=== PATIENT | male | born 1960 | race African-American/Black ===

== ENCOUNTER 2019-05-03 17:22 | Inpatient (IN) | payer OTHER ==
[2019-05-03 18:04] VITALS: BMI 28.1
--- NOTE | 2019-05-03 19:18 | HP ---
CIWA Score Nausea/Vomitin-No Nausea/No Vomiting Muscle Tremors: None Anxiety: 0-No Anxiety, at Ease Agitation: 0-Normal Activity Paroxysmal Sweats: 1-Minimal Palms Moist Orientation: 0-Oriented Tacttile Disturbances: 0-None Auditory Disturbances: 0-None Visual Disturbances: 0-None Headache: 0-None Present CIWA-Ar Total Score: 1 - Admission Criteria OASAS Guidelines: Admission for Medically Managed Detox: Requires at least one of the followin. CIWA greater than 12 2. Seizures within the past 24 hours 3. Delirium tremens within the past 24 hours 4. Hallucinations within the past 24 hours 5. Acute intervention needed for co occurring medical disorder 6. Acute intervention needed for co occurring psychiatric disorder 7. Severe withdrawal that cannot be handled at a lower level of care (continued vomiting, continued diarrhea, abnormal vital signs) requiring intravenous medication and/or fluids 8. Admission ROS [facility] Chief Complaint: rehab from alcohol use- completed detox 2 weeks ago Allergies/Adverse Reactions: Allergies Allergy/AdvReac Type Severity Reaction Status Date / Time No Known Allergies Allergy Verified 05/03/19 17:57 History of Present Illness: 59 yo with no medical problems on no meds, here for eval and treatment of alcohol use disorder. Starts to drink early at friends house and drinks all day. Says he was in detox a couple of weeks ago to [facility] and was given librium, left 2 weeks ago and has cut down on drinking and feels like he needs rehab.and not detox alcohol- drinks 1 1/2 pints/day of vodka- no h/o seizures, DT's cocaine-occ Utox- shawn, BZO, MARIANNE- 0.62 DUR- shows no recent meds - Ebola screening Have you traveled outside of the country in the last 21 days: No (N) Have you had contact with anyone from an Ebola affected area: No Do you have a fever: No Patient History - Patient Medical History Hx Anemia: Yes (no med) Hx Asthma: No Hx Chronic Obstructive Pulmonary Disease (COPD): No Hx Cancer: No Hx Cardiac Disorders: No Hx Congestive Heart Failure: No Hx Hypertension: No Hx Hypercholesterolemia: No Hx Pacemaker: No HX Cerebrovascular Accident: No Hx Seizures: No Hx Dementia: No Hx Diabetes: No Hx Gastrointestinal Disorders: No Hx Liver Disease: No Hx Genitourinary Disorders: No Hx Sexually Transmitted Disorders: No Hx Renal Disease (ESRD): No Hx Thyroid Disease: No Hx Human Immunodeficiency Virus (HIV): No (2011) Hx Hepatitis C: No Hx Depression: No Hx Suicide Attempt: No Hx Bipolar Disorder: No Hx Schizophrenia: No - Patient Surgical History Past Surgical History: Yes Hx Neurologic Surgery: No Hx Cataract Extraction: No Hx Cardiac Surgery: No Hx Lung Surgery: No Hx Breast Surgery: No Hx Breast Biopsy: No Hx Abdominal Surgery: No Hx Appendectomy: No Hx Cholecystectomy: No Hx Genitourinary Surgery: No Hx Section: No Hx Orthopedic Surgery: No Other Surgical History: SURGERY FOR HEMORROIDS - SEVERAL YRS. AGO Anesthesia Reaction: No - PPD History Date: 09/09/13 - Smoking Cessation Smoking history: Current every day smoker Have you smoked in the past 12 months: Yes Aproximately how many cigarettes per day: 1 Hx Chewing Tobacco Use: No Initiated information on smoking cessation: Yes 'Breaking Loose' booklet given: 05/03/19 - Substance & Tx. History Hx Alcohol Use: Yes Hx Substance Use: Yes Substance Use Type: Alcohol Hx Substance Use Treatment: Yes - Substances abused Alcohol Substance route: Oral Frequency: Daily Amount used: 1 1/2 PINT OF VODKA Age of first use: 13 Date of last use: 05/03/19 Cocaine Substance route: Smoking Frequency: 3-6 times per week Amount used: $200 Age of first use: 49 Date of last use: 05/02/19 Family Disease History - Family Disease History Family Disease History: Other: Father (alcohol,) Admission Physical Exam S - Vital Signs Vital Signs: Vital Signs - 24 hr 05/03/19 18:00 Temperature 97.3 F L Pulse Rate 85 Respiratory 19 Rate Blood Pressure 143/81 - Physical General Appearance: Yes: Within Normal Limits HEENTM: Yes: Within Normal Limits Respiratory: Yes: Within Normal Limits Neck: Yes: Within Normal Limits Cardiology: Yes: Within Normal Limits Abdominal: Yes: Within Normal Limits Genitourinary: Yes: Within Normal Limits Back: Yes: Within Normal Limits Musculoskeletal: Yes: Within Normal Limits Extremities: Yes: Within Normal Limits Neurological: Yes: Within Normal Limits Integumentary: Yes: Within Normal Limits Lymphatic: Yes: Within Normal Limits Breathalyzer - Breathalyzer Breathalyzer: 0.062 Urine Drug Screen - Test Device Lot number: [id number] Expiration date: 12/29/20 - Control Is test valid?: Yes - Results Drug screen NEGATIVE: No Urine drug screen results: SHAWN-Cocaine, BZO-Benzodiazepines Inpatient Rehab Admission - Rehab Decision to Admit Inpatient rehab admission?: Yes - Initial Determination Are CD services needed?: Yes Free of communicable disease: Yes Not in need of hospitalization: Yes - Rehab Admission Criteria Previous failed treatment: Yes Poor recovery environment: Yes Comorbidities: Yes Lacks judgement: Yes Patient is meeting Inpatient Rehab admission criteria:: Yes (completed detox, here for rehab services for alcohol)
[2019-05-03] MEDS ORDERED: MAGNESIUM HYDROX 2400MG/30ML ORAL SUSPENSION 30 ML CUP PO PRN (19:23)
[2019-05-03] MEDS ORDERED: P-EPHED 60MG/TRIPROLIDI 2.5MG TABLET PO PRN (19:23)
[2019-05-03] MEDS ORDERED: NICOTINE POLACRILEX 2 MG GUM BC PRN (19:23)
[2019-05-03] MEDS ORDERED: ACETAMINOPHEN 325 MG TABLET (FP) PO PRN (19:23)
[2019-05-03] MEDS ORDERED: IBUPROFEN 400 MG TABLET (FP) PO PRN (19:23)
[2019-05-03] MEDS ORDERED: MAGNESIUM CITRATE 300 ML BOTTLE PO PRN (19:23)
[2019-05-03] MEDS ORDERED: LOPERAMIDE HCL 2 MG CAPSULE PO PRN (19:23)
[2019-05-03] MEDS ORDERED: MAG HYDROX/AL HYDROX/SIMETH 30 ML UNIT-DOSE CUP PO PRN (19:23)
[2019-05-03] MEDS ORDERED: guaiFENesin 200 MG/10 ML 10 ML UNIT-DOSE CUPS PO PRN (19:23)
[2019-05-03] MEDS ORDERED: MENTHOL/PHENOL 1 EACH UD MM PRN (19:23)
[2019-05-03] MEDS ORDERED: hydrOXYzine PAMOATE 25 MG CAPSULE (FP) PO PRN (19:23)
[2019-05-03] MEDS ORDERED: MELATONIN 5 MG TABLETS PO PRN (22:00)
[2019-05-03] MEDS ORDERED: THIAMINE HCL 100 MG TABLET (FP) PO SCH (22:00)
--- NOTE | 2019-05-04 09:29 | PN ---
[facility] CIWA - CIWA Score Nausea/Vomitin-Mild Nausea/No Vomiting Muscle Tremors: 2 Anxiety: 1-Mildly Anxious Agitation: 0-Normal Activity Paroxysmal Sweats: No Perspiration Orientation: 0-Oriented Tacttile Disturbances: 0-None Auditory Disturbances: 0-None Visual Disturbances: 0-None Headache: 3-Moderate CIWA-Ar Total Score: 7 [facility] Progress Note (SOAP) Subjective: PT ADMITTED YESTERDAY AND NOW C/O WITHDRAWAL SX OF NAUSEA, SWEATING, ANXIETY AND SHAKES STATING "I NEED DETOX OR ELSE I WILL SIGN OUT". PT STATED HE HAD A LOT OF ALCOHOL IN HIS SYSTEM AND MINIMIZED HIS SYMPTOMS. PT REPORTS HE WAS DOING WELL UNTILL HE RELAPSED 2-3 MONTHS AGO AND USING MORE IN THE LAST 3 WEEKS. REPORTS HE WENT TO DETOX 2 WEEKS AGO AT [facility] AND RECENTLY CONTINUED TO DRINK. PT STATED THAT HE NEEDS HELP AND WILL LIKE TO CONTINUE TREATMENT IN REHAB AFTER DETOX. NO HX SEIZURES,DTs, HALLUCINATIONS OR S/H/ IDEATIONS. REPORTS HX BLACKOUTS DUE TO DRINKING. PMHX:PT DENIES PSCH Hx:PT REPORTS HX PAST PSYCH VISIT X2 BUT REFUSED MEDICATION. Objective: 05/04/19 11:23 Vital Signs - 24 hr 05/03/19 05/03/19 05/04/19 18:00 20:35 00:30 Temperature 97.3 F L 97.5 F L Pulse Rate 85 81 Respiratory 19 18 18 Rate Blood Pressure 143/81 109/85 05/04/19 05/04/19 03:30 06:45 Temperature Pulse Rate Respiratory 18 18 Rate Blood Pressure LABS RESULTS PENDING CIWA SCORE 7 WAS (1) YESTERDAY. Assessment: 05/04/19 11:25 ALCOHOL USE DISORDER WITHDRAWAL SX Plan: CONSULTED WITH DR. GERONIMO ON PT'S STATUS. 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 GERONIMO SEE A CLINICAL NEED TO TRANSFER PT TO DETOX FROM REHAB BASED ON SX AND CIWA SCORE.
[2019-05-04 09:38] LABS: EPI CELLS 1.9 /HPF (0-5/HPF); HYALINE CASTS 12 /lpf (0-8); URINE APPEARANCE TURBID; URINE BACTERIA 40.5 /hpf (NEGATIVE); URINE BILIRUBIN NEGATIVE (NEGATIVE); URINE COLOR DK YELLOW; URINE GLUCOSE (UA) NEGATIVE (NEGATIVE); URINE KETONE TRACE (NEGATIVE); URINE LEUK ESTERASE NEGATIVE (NEGATIVE); URINE NITRITE NEGATIVE (NEGATIVE); URINE PROTEIN 1+ (NEGATIVE); URINE RBC 2 /hpf (0-4)
[2019-05-04] MEDS ORDERED: PRENATAL VITAMINS W/ FOLIC ACID TABLET (FP) PO SCH (10:00)
[2019-05-04 11:39] VITALS: BP 129/69; PULSE 73; TEMP 98.5
[2019-05-04 13:00] LABS: HEMATOCRIT 42.4 % (35.4-49); HEMOGLOBIN 13.2 GM/dL (11.7-16.9); MCH 22.6 pg (25.7-33.7); MEAN PLT VOLUME 9.2 fl (7.5-11.1); RBC 5.81 M/mm3 (4.00-5.60); RDW 16.4 % (11.9-15.9); WHITE BLOOD COUNT 7.9 K/mm3 (4.0-10.0)
[2019-05-04 13:17] LABS: ALBUMIN 3.6 g/dl (3.4-5.0); BLOOD UREA NITROGEN 13.8 mg/dL (7-18); CALCIUM 9.1 mg/dL (8.5-10.1); CREATININE 1.1 mg/dL (0.55-1.3); POTASSIUM 3.8 mmol/L (3.5-5.1); TOT PROT 8.1 g/dl (6.4-8.2)
[2019-05-04 13:29] LABS: PLATELET COUNT 165 K/MM3 (134-434)
--- NOTE | 2019-05-04 14:50 | PN ---
[facility] Progress Note Note: this 59 years old male with alcohol and cocaine dependence,was admitted in rehab on 05/03/19, developed severe withdrawal signs and symptom,evaluated by CHIEF RISK OFFICER Iesha Garcia and concurred by DR.A Moe for the need of inpatient detox,Medical manage,Librium regimen patient has history of heavy and long standing of alcoholic consumption,1 to 2 pints of vodka/day,stared at age of 13, last drink 05/03/19,also cocaine dependence 200$/use,3 to 6 times/week,last use 05/02/19 denied seizure but have history of black out before I agreed and concurred that this patient need inpatient detox from alcohol and cocaine dependence, medically manage and Librium regimen
--- NOTE | 2019-05-04 14:55 | PN ---
S CIWA - CIWA Score Nausea/Vomitin Muscle Tremors: 3 Anxiety: 3 Agitation: 3 Paroxysmal Sweats: 1-Minimal Palms Moist Orientation: 0-Oriented Tacttile Disturbances: 1-Very Mild Itch/Numbness Auditory Disturbances: 1-Very Mild Visual Disturbances: 0-None Headache: 2-Mild CIWA-Ar Total Score: 17 [facility] Progress Note (SOAP) Subjective: alert,oriented x 3,tremor,nausea,vomiting sweating,insomnia,diarrhea, Objective: 05/04/19 14:52 Laboratory Last Values WBC 7.9 K/mm3 (4.0-10.0) 05/04/19 10:00 RBC 5.81 M/mm3 (4.00-5.60) H 05/04/19 10:00 Hgb 13.2 GM/dL (11.7-16.9) 05/04/19 10:00 Hct 42.4 % (35.4-49) 05/04/19 10:00 MCV 73.0 fl (80-96) L 05/04/19 10:00 MCH 22.6 pg (25.7-33.7) L 05/04/19 10:00 MCHC 31.0 g/dl (32.0-35.9) L 05/04/19 10:00 RDW 16.4 % (11.9-15.9) H 05/04/19 10:00 Plt Count 165 K/MM3 (134-434) D 05/04/19 10:00 MPV 9.2 fl (7.5-11.1) 05/04/19 10:00 Sodium 142 mmol/L (136-145) 05/04/19 10:00 Potassium 3.8 mmol/L (3.5-5.1) 05/04/19 10:00 Chloride 107 mmol/L (98-107) 05/04/19 10:00 Carbon Dioxide 30 mmol/L (21-32) 05/04/19 10:00 Anion Gap 5 MMOL/L (8-16) L 05/04/19 10:00 BUN 13.8 mg/dL (7-18) 05/04/19 10:00 Creatinine 1.1 mg/dL (0.55-1.3) 05/04/19 10:00 Est GFR (CKD-EPI)AfAm 84.71 05/04/19 10:00 Est GFR (CKD-EPI)NonAf 73.09 05/04/19 10:00 Random Glucose 103 mg/dL (74-106) 05/04/19 10:00 Calcium 9.1 mg/dL (8.5-10.1) 05/04/19 10:00 Total Bilirubin 1.0 mg/dL (0.2-1) 05/04/19 10:00 AST 24 U/L (15-37) 05/04/19 10:00 ALT 27 U/L (13-61) 05/04/19 10:00 Alkaline Phosphatase 112 U/L (45-117) 05/04/19 10:00 Total Protein 8.1 g/dl (6.4-8.2) 05/04/19 10:00 Albumin 3.6 g/dl (3.4-5.0) 05/04/19 10:00 Urine Color Dk yellow 05/03/19 09:23 Urine Appearance Turbid 05/03/19 09:23 Urine pH 5.0 (5.0-8.0) D 05/03/19 09:23 Ur Specific Mcgrath 1.037 (1.010-1.035) H 05/03/19 09:23 Urine Protein 1+ (NEGATIVE) H 05/03/19 09:23 Urine Glucose (UA) Negative (NEGATIVE) 05/03/19 09:23 Urine Ketones Trace (NEGATIVE) H 05/03/19 09:23 Urine Blood Negative (NEGATIVE) 05/03/19 09:23 Urine Nitrite Negative (NEGATIVE) 05/03/19 09:23 Urine Bilirubin Negative (NEGATIVE) 05/03/19 09:23 Urine Urobilinogen 1.0 mg/dL (0.2-1.0) 05/03/19 09:23 Ur Leukocyte Esterase Negative (NEGATIVE) 05/03/19 09:23 Urine RBC (Auto) 2 /hpf (0-4) 05/03/19 09:23 Urine Casts (Auto) 12 /lpf (0-8) 05/03/19 09:23 U Epithel Cells (Auto) 1.9 /HPF (0-5/HPF) 05/03/19 09:23 Urine Crystals (Auto) /hpf 05/03/19 09:23 Urine Bacteria (Auto) 40.5 /hpf (NEGATIVE) 05/03/19 09:23 RPR Titer Nonreactive (NONREACTIVE) 05/04/19 10:00 05/04/19 14:54 Vital Signs Temperature 98.5 F 05/04/19 11:37 Pulse Rate 73 05/04/19 11:37 Respiratory Rate 20 05/04/19 11:37 Blood Pressure 129/69 05/04/19 11:37 O2 Sat by Pulse Oximetry (%) Assessment: 05/04/19 14:55 withdrawal signs and symptom Plan: for inpatient detox,medically manage,librium regimen close monitoring
== END 2019-05-04 11:20 | disposition home or self-care (01) | DRG 772 ==
LOC: YASAS 17:22 → Y5N 19:41
PROVIDERS: ADMIT Neuromusculoskeletal Medicine & OMM; ATTEND Neuromusculoskeletal Medicine & OMM
PROC: HZ42ZZZ Group Counseling for Substance Abuse Treatment, Cognitive-Behavioral (ICD-10-PCS; principal; 2019-05-03)
DX: F10.20 Alcohol dependence, uncomplicated (principal); F14.20 Cocaine dependence, uncomplicated; D64.9 Anemia, unspecified
CPT/HCPCS: 36415; 80053; 81003; 85027; 86480; 86593

== ENCOUNTER 2019-05-04 11:26 | Inpatient (IN) | payer OTHER ==
[2019-05-04] MEDS ORDERED: diazePAM 5 MG TABLET PO PRN (12:09)
[2019-05-04] MEDS ORDERED: MAGNESIUM HYDROX 2400MG/30ML ORAL SUSPENSION 30 ML CUP PO PRN (12:09)
[2019-05-04] MEDS ORDERED: MELATONIN 5 MG TABLETS PO PRN (12:09)
[2019-05-04] MEDS ORDERED: MAGNESIUM CITRATE 300 ML BOTTLE PO PRN (12:09)
[2019-05-04] MEDS ORDERED: ONDANSETRON *ODT* 4 MG TABLET SL PRN (12:09)
[2019-05-04] MEDS ORDERED: MAG HYDROX/AL HYDROX/SIMETH 30 ML UNIT-DOSE CUP PO PRN (12:09)
[2019-05-04] MEDS ORDERED: hydrOXYzine PAMOATE 25 MG CAPSULE (FP) PO PRN (12:09)
[2019-05-04] MEDS ORDERED: ACETAMINOPHEN 325 MG TABLET (FP) PO PRN ×2 (12:09)
[2019-05-04] MEDS ORDERED: BISMUTH SUBSALICYLATE 524 MG/30 ML UD PO PRN (12:09)
[2019-05-04] MEDS ORDERED: MENTHOL/PHENOL 1 EACH UD MM PRN (12:09)
[2019-05-04] MEDS ORDERED: IBUPROFEN 400 MG TABLET (FP) PO PRN (12:09)
[2019-05-04] MEDS ORDERED: METHOCARBAMOL 500 MG TABLET PO PRN (12:09)
[2019-05-04] MEDS ORDERED: NICOTINE POLACRILEX 2 MG GUM BUC PRN (12:09)
[2019-05-04] MEDS ORDERED: NICOTINE 14 MG/24 HOURS TOPICAL PATCH TD SCH (12:15)
[2019-05-04] MEDS ORDERED: diazePAM 5 MG TABLET PO SCH (14:00)
--- NOTE | 2019-05-04 15:21 | HP ---
CIWA Score Nausea/Vomitin Muscle Tremors: 3 Anxiety: 3 Agitation: 3 Paroxysmal Sweats: 1-Minimal Palms Moist Orientation: 0-Oriented Tacttile Disturbances: 1-Very Mild Itch/Numbness Auditory Disturbances: 1-Very Mild Visual Disturbances: 0-None Headache: 2-Mild CIWA-Ar Total Score: 17 - Admission Criteria OASAS Guidelines: Admission for Medically Managed Detox: Requires at least one of the followin. CIWA greater than 12 2. Seizures within the past 24 hours 3. Delirium tremens within the past 24 hours 4. Hallucinations within the past 24 hours 5. Acute intervention needed for co occurring medical disorder 6. Acute intervention needed for co occurring psychiatric disorder 7. Severe withdrawal that cannot be handled at a lower level of care (continued vomiting, continued diarrhea, abnormal vital signs) requiring intravenous medication and/or fluids 8. Admission ROS [facility] Chief Complaint: patient was admitted to rehab [address] [place] [address] on 05/03/19 ,developed withdrawal signs and symptom today need inpatient detox Allergies/Adverse Reactions: Allergies Allergy/AdvReac Type Severity Reaction Status Date / Time No Known Allergies Allergy Verified 05/03/19 17:57 History of Present Illness: this 59 years old male with extensive history of heavy and long standing of alcohol dependence since the age of [age] years old, drinking more heavy lately,consume vodka 1 to 2 pints of vodka/day,last drink ,also using cocaine inhale 200$/use, 3 to 6 times per week,last use 05/02/19 history of black out denied seizure multiple admissions in detox and rehabs,last in [facility] 2 weeks ago but keep relapsing nicotine dependence 10 cigarette/day would like to have nicotine patch 21 mgs and nicotine gum weight loss history of anxiety,depression,insomnia,no med developed withdrawal sings and symptom in rehab,need inpatient detox Exam Limitations: No Limitations - Ebola screening Have you traveled outside of the country in the last 21 days: No (N) Have you had contact with anyone from an Ebola affected area: No Do you have a fever: No - Review of Systems Constitutional: Chills, Loss of Appetite, Malaise, Night Sweats, Changes in sleep, Unintentional Wgt. Loss EENT: reports: Nose Congestion Respiratory: reports: No Symptoms reported Cardiac: reports: No Symptoms Reported GI: reports: Diarrhea, Nausea, Poor Appetite, Vomiting, Abdominal cramping : reports: No Symptoms Reported Musculoskeletal: reports: Back Pain, Muscle Pain Integumentary: reports: Dryness Neuro: reports: Headache, Tremors Endocrine: reports: No Symptoms Reported Hematology: reports: No Symptoms Reported Psychiatric: reports: No Sypmtoms Reported, Judgement Intact, Mood/Affect Appropiate, Orientated x3, Anxious, Depressed Other Systems: Reviewed and Negative Patient History - Patient Medical History Hx Anemia: Yes (no med) Hx Asthma: No Hx Chronic Obstructive Pulmonary Disease (COPD): No Hx Cancer: No Hx Cardiac Disorders: No Hx Congestive Heart Failure: No Hx Hypertension: No Hx Hypercholesterolemia: No Hx Pacemaker: No HX Cerebrovascular Accident: No Hx Seizures: No Hx Dementia: No Hx Diabetes: No Hx Gastrointestinal Disorders: No Hx Liver Disease: No Hx Genitourinary Disorders: No Hx Sexually Transmitted Disorders: No Hx Renal Disease (ESRD): No Hx Thyroid Disease: No Hx Human Immunodeficiency Virus (HIV): No (last 11/19 negative) Hx Hepatitis C: No Hx Depression: No Hx Suicide Attempt: No (thought of hurting himself to jump from bridge at age of 52,change his mind) Hx Bipolar Disorder: No Hx Schizophrenia: No Other Medical History: no suicidal,no homicidal - Patient Surgical History Past Surgical History: Yes Hx Neurologic Surgery: No Hx Cataract Extraction: No Hx Cardiac Surgery: No Hx Lung Surgery: No Hx Breast Surgery: No Hx Breast Biopsy: No Hx Abdominal Surgery: No Hx Appendectomy: No Hx Cholecystectomy: No Hx Genitourinary Surgery: No Hx Section: No Hx Orthopedic Surgery: No Other Surgical History: SURGERY FOR HEMORROIDS - SEVERAL YRS. AGO Anesthesia Reaction: No - PPD History Previous Implant?: Yes Documented Results: Negative w/o proof Date: 09/09/13 PPD to be Administered?: No - Smoking Cessation Smoking history: Current every day smoker Have you smoked in the past 12 months: Yes Aproximately how many cigarettes per day: 10 Hx Chewing Tobacco Use: No Initiated information on smoking cessation: Yes 'Breaking Loose' booklet given: 05/04/19 - Substance & Tx. History Hx Alcohol Use: Yes Hx Substance Use: Yes Substance Use Type: Alcohol, Cocaine Hx Substance Use Treatment: Yes ([facility] 2 weeks ago) - Substances abused Alcohol Substance route: Oral Frequency: Daily Amount used: 1 1/2 PINT OF VODKA Age of first use: 13 Date of last use: 05/03/19 Cocaine Substance route: Smoking Frequency: 3-6 times per week Amount used: $200 Age of first use: 49 Date of last use: 05/02/19 Family Disease History - Family Disease History Family Disease History: Other: Father (alcohol,) Admission Physical Exam [facility] - Vital Signs Vital Signs: Vital Signs - 24 hr 05/04/19 14:04 Temperature 98.6 F Pulse Rate 82 Respiratory 18 Rate Blood Pressure 141/93 - Physical General Appearance: Yes: Moderate Distress, Tremorous, Irritable, Sweating, Anxious HEENTM: Yes: Normal ENT Inspection, CASSIE, Nasal Congestion Respiratory: Yes: Within Normal Limits Neck: Yes: Within Normal Limits, Supple, Trachea in good position Breast: Yes: Within Normal Limits Cardiology: Yes: Within Normal Limits, Regular Rhythm, Regular Rate, S1, S2 Abdominal: Yes: Within Normal Limits, Normal Bowel Sounds, Non Tender, Flat, Soft Genitourinary: Yes: Within Normal Limits Back: Yes: Muscle Spasm Musculoskeletal: Yes: Back pain, Muscle Pain Extremities: Yes: Tremors Neurological: Yes: soil analyst II-XII NML intact, Fully Oriented, Alert, Motor Strength 5/5 Integumentary: Yes: Dry Lymphatic: Yes: Within Normal Limits - Diagnostic (1) Alcohol dependence with uncomplicated withdrawal Current Visit: Yes Status: Acute (2) Cocaine dependence Current Visit: No Status: Active (3) Syncope Current Visit: No Status: Active (4) arthritis both knees Current Visit: No Status: Acute (5) Nicotine dependence Current Visit: Yes Status: Chronic (6) Weight loss Current Visit: Yes Status: Acute (7) Anxiety and depression Current Visit: Yes Status: Acute (8) Insomnia Current Visit: Yes Status: Acute (9) Hx of hemorrhoidectomy Current Visit: Yes Status: Resolved Cleared for Admission [facility] - Detox or Rehab [facility] Level of Care: Medically Managed (patient did not want valium regimen , would like librium) Detox Regimen/Protocol: Librium Screened but not Admitted - Documentation of Visit Screened but not Admitted: No Breathalyzer - Breathalyzer Breathalyzer: 0.062 Urine Drug Screen - Test Device Lot number: [id number] Expiration date: 12/29/20 - Control Is test valid?: Yes - Results Drug screen NEGATIVE: No Urine drug screen results: MARK-Cocaine, BZO-Benzodiazepines Inpatient Rehab Admission - Rehab Decision to Admit Inpatient rehab admission?: No
[2019-05-04] MEDS ORDERED: chlordiazePOXIDE HCL 25 MG CAPSULE PO PRN (16:12)
[2019-05-04] MEDS ORDERED: NICOTINE POLACRILEX 2 MG GUM BC PRN (16:13)
[2019-05-04] MEDS: NICOTINE 21 MG/24 HOURS TOPICAL PATCH TD SCH (16:20)
[2019-05-04] MEDS: chlordiazePOXIDE HCL 25 MG CAPSULE PO SCH ×2 (17:51→23:01)
[2019-05-04] MEDS: THIAMINE HCL 100 MG TABLET (FP) PO SCH (23:00)
[2019-05-05] MEDS: chlordiazePOXIDE HCL 25 MG CAPSULE PO SCH ×4 (05:19→22:43)
--- NOTE | 2019-05-05 09:12 | CONSULT ---
[facility] Psychiatric Consult - Data Date of interview: 05/05/19 Admission source: Self-referred Identifying data: Mr Tariq is a 59 years old Black male, father of 2 children, unemployed receiving food stamp, homeless seeking detox treatment for alcohol and cocaine Substance Abuse History: Reports history of alcohol and cocaine use. Refer to addiction counselor's summary for further information Medical History: Significant for history of anemia and hemorrhoidectomy. Smokes 10 cigarettes daily Psychiatric History: Reports that 2 years ago while at [facility], he saw a psychiatrist because he was feeling depressed and suicidal due to inability to find a job. Claims that he was not prescribed medication nor referred to ED for evaluation. Denies previous psychiatric hospitalization or suicidal attempt. At present, reports feeling depressed and sleeping poorly Physical/Sexual Abuse/Trauma History: Denies history of emotional, physical or sexual abuse as well as DV. No service relationship Additional Comment: Reports history of 2 previous arrests inluding one felony conviction. Denies being on parole/probation Mental Status Exam - Mental Status Exam Alert and Oriented to: Time, Place, Person Cognitive Function: Fair Patient Appearance: Disheveled Mood: Depressed Affect: Appropriate Patient Behavior: Cooperative Speech Pattern: Clear Voice Loudness: Normal Thought Process: Intact, Goal Oriented Thought Disorder: Not Present Hallucinations: Denies Suicidal Ideation: Denies Homicidal Ideation: Denies Insight/Judgement: Poor Sleep: Poorly Appetite: Poor Muscle strength/Tone: Normal, Severe Hypotonicity Psychiatric Findings - Problem List ([place] 1, 2,3) (1) Substance induced mood disorder Current Visit: Yes Status: Acute (2) Substance-induced sleep disorder Current Visit: Yes Status: Acute (3) Alcohol dependence with uncomplicated withdrawal Current Visit: Yes Status: Acute (4) Cocaine dependence Current Visit: No Status: Active (5) Nicotine dependence Current Visit: Yes Status: Chronic (6) Hx of hemorrhoidectomy Current Visit: Yes Status: Resolved (7) arthritis both knees Current Visit: No Status: Acute - Initial Treatment Plan Initial Treatment Plan: 1) Start Melatonin 5 mg po HS prn for insomnia. 2) Continue inpatient detoxification
[2019-05-05] MEDS ORDERED: diazePAM 5 MG TABLET PO SCH (10:00)
[2019-05-05] MEDS: NICOTINE 21 MG/24 HOURS TOPICAL PATCH TD SCH (11:02)
[2019-05-05] MEDS: PRENATAL VITAMINS W/ FOLIC ACID TABLET (FP) PO SCH (11:02)
--- NOTE | 2019-05-05 11:28 | PN ---
S CIWA - CIWA Score Nausea/Vomitin Muscle Tremors: 2 Anxiety: 2 Agitation: 2 Paroxysmal Sweats: No Perspiration Orientation: 0-Oriented Tacttile Disturbances: 1-Very Mild Itch/Numbness Auditory Disturbances: 1-Very Mild Visual Disturbances: 0-None Headache: 1-Very Mild CIWA-Ar Total Score: 11 S Progress Note (SOAP) Subjective: alert,irritable,anxious,interrupted sleep,tremor Objective: 05/05/19 11:27 Vital Signs Temperature 97.5 F L 05/05/19 10:00 Pulse Rate 72 05/05/19 10:00 Respiratory Rate 18 05/05/19 10:00 Blood Pressure 126/82 05/05/19 10:00 O2 Sat by Pulse Oximetry (%) Assessment: 05/05/19 11:28 withdrawal symptom Plan: continue detox,
[2019-05-05] MEDS: THIAMINE HCL 100 MG TABLET (FP) PO SCH (22:43)
[2019-05-06] MEDS ORDERED: chlordiazePOXIDE HCL 25 MG CAPSULE PO SCH (05:00)
[2019-05-06] MEDS ORDERED: diazePAM 5 MG TABLET PO ONE (06:00)
[2019-05-06 07:44] VITALS: TEMP 97.7
[2019-05-06 09:22] VITALS: BP 111/85; PULSE 76
[2019-05-06] MEDS: NICOTINE 21 MG/24 HOURS TOPICAL PATCH TD SCH (09:51)
[2019-05-06] MEDS: PRENATAL VITAMINS W/ FOLIC ACID TABLET (FP) PO SCH (09:51)
--- NOTE | 2019-05-06 13:40 | DS ---
[facility] Detox Discharge Summary Admission Date: 05/04/19 Discharge Date: 05/06/19 (Left AMA) - History Present History: Alcohol Dependence, Cocaine Dependence Additional Comments: Pt left AMA. Pt did not complete his detox protocol. Pt stated that he has to go home and take care of personal stuff. An attempt to let pt stay and complete his detox protocol failed. Pt is encouraged to follow-up with his PMD and also to follow-up with [facility] outpatient CD program as he stated. Pt is alert and oriented x3 and in no respiratory distress. Pertinent Past History: H/O alcohol and cocaine use disorder. - Physical Exam Results Vital Signs: Vital Signs Temperature 97.7 F 05/06/19 09:19 Pulse Rate 76 05/06/19 09:19 Respiratory Rate 18 05/06/19 09:19 Blood Pressure 111/85 05/06/19 09:19 O2 Sat by Pulse Oximetry (%) Vital Signs 05/06/19 05/06/19 07:44 09:19 Temperature 97.7 F 97.7 F Pulse Rate 77 76 Respiratory 18 18 Rate Blood Pressure 119/76 111/85 Pertinent Admission Physical Exam Findings: withdrawal symptoms. - Treatment Hospital Course: Detox Protocol Followed - Medication Discharge Medications: Ambulatory Orders NK [No Known Home Medication] 05/03/19 - Diagnosis (1) Alcohol dependence Status: Active (2) Cocaine dependence Status: Active (3) Alcohol dependence with uncomplicated withdrawal Status: Acute - AMA Did Patient Leave Against Medical Advice: Yes
[2019-05-07] MEDS ORDERED: chlordiazePOXIDE HCL 10 MG CAPSULE PO PRN
[2019-05-07] MEDS ORDERED: chlordiazePOXIDE HCL 10 MG CAPSULE PO SCH (05:00)
[2019-05-08] MEDS ORDERED: chlordiazePOXIDE HCL 10 MG CAPSULE PO SCH (05:00)
[2019-05-09] MEDS ORDERED: chlordiazePOXIDE HCL 10 MG CAPSULE PO ONE (05:00)
== END 2019-05-06 10:04 | disposition home or self-care (01) | DRG 774 ==
LOC: YASAS 11:26 → Y6N 11:27
PROVIDERS: ADMIT Surgery; ATTEND Surgery
PROC: HZ2ZZZZ Detoxification Services for Substance Abuse Treatment (ICD-10-PCS; principal; 2019-05-04)
DX: F10.230 Alcohol dependence with withdrawal, uncomplicated (principal); F14.20 Cocaine dependence, uncomplicated; F17.210 Nicotine dependence, cigarettes, uncomplicated; F19.24 Other psychoactive substance dependence with psychoactive substance-induced mood disorder; F19.282 Other psychoactive substance dependence with psychoactive substance-induced sleep disorder; F41.9 Anxiety disorder, unspecified; F32.9 Major depressive disorder, single episode, unspecified; M13.862 Other specified arthritis, left knee; M13.861 Other specified arthritis, right knee; D64.9 Anemia, unspecified; E66.9 Obesity, unspecified; Z98.890 Other specified postprocedural states